=== PATIENT | female | born 1995 | race Caucasian/White ===

== ENCOUNTER → 2021-11-24 16:34 | Outpatient (BNVA) | payer SELFPAY | PROVIDERS: Visit Provider Emergency Medicine | DX: R39.9 Unspecified symptoms and signs involving the genitourinary system (principal); N39.0 Urinary tract infection, site not specified | CPT/HCPCS: 81000 ==

== ENCOUNTER 2021-12-17 19:09 | Emergency (ER) | payer OTHER, SELFPAY ==
[2021-12-17 19:29] VITALS: BP 196/113; PULSE 100; RESP 18; O2SAT 99
[2021-12-17 19:30] VITALS: BP 196/113; PULSE 95; RESP 21; O2SAT 96; BMI 19.0
[2021-12-17 19:37] VITALS: BP 196/113; PULSE 95; RESP 21; TEMP 36.6; O2SAT 96
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
[2021-12-17 20:47] LABS: Basophils % 0.3 %; Eosinophils # 0.1 10^3/uL (0.0-0.8); Eosinophils % 0.7 %; Hematocrit 40.7 % (37.0-47.0); Hemoglobin 13.8 g/dL (11.5-15.3); Lymphocytes # 2.3 10^3/uL (0.8-4.8); Lymphocytes % 21.1 %; Mean Corpuscular HGB Conc 33.9 g/dL (30.0-36.0); Mean Corpuscular Hemoglobin 30.2 pg (28.0-34.0); Mean Corpuscular Volume 89.1 fl (81-99); Mean Platelet Volume 11.3 fL (7.4-10.4); Monocytes # 0.6 10^3/uL (0.2-0.9); Monocytes % 5.8 %; Neutrophils # 7.64 10^3/uL (1.8-7.7); Neutrophils % 71.4 %; Nucleated Red Blood Cells % 0 %; Platelet Count 269 10^3/cmm (130-400); Red Blood Count 4.57 10^6/uL (4.1-5.3); Red Cell Distribution Width 12.3 % (12.1-15.1); White Blood Count 10.7 10^3/uL (4.0-10.0)
[2021-12-17 21:27] VITALS: RESP 17; O2SAT 98
[2021-12-17] MEDS: morphine 4 mg/mL SDV 1 mL IVP (21:27)
[2021-12-17 21:31] VITALS: BP 171/103; PULSE 89; RESP 17; O2SAT 98
[2021-12-17] MEDS: ondansetron 2 mg/ML SDV 2 mL 4 MG IVP (21:41)
[2021-12-17 21:42] LABS: Alanine Aminotransferase 24 U/L (0-33); Albumin Level 4.2 g/dL (3.5-5.2); Alkaline Phosphatase 113 IU/L (35-105); Anion Gap 14.1 (5-19); Aspartate Amino Transferase 29 U/L (0-32); Blood Urea Nitrogen 14 mg/dL (6-20); Calcium 8.7 mg/dL (8.5-10.5); Carbon Dioxide 26 mmol/L (22-29); Chloride 104 mmol/L (98-107); Globulin 3.1 g/dL (1.3-4.6); Glomerular Filtration Rate 102.8 mL/min (90-130); Glucose 100 mg/dL (65-115); Osmolality Calculated 291 mOsm/kg (285-295); Potassium 4.1 mmol/L (3.5-5.1); Sodium 140 mmol/L (136-145); Total Bilirubin 0.5 mg/dL (0.15-1.2); Total Protein 7.3 g/dL (6.6-8.7)
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
[2021-12-17 22:43] VITALS: BP 171/103; PULSE 82; RESP 18; O2SAT 95
[2021-12-17] MEDS: tetanus-dipt-pertussis 0.5 mL SDV IM (23:42)
[2021-12-18] MEDS: neomycin-poly-bacitracin oint 0.9 gm Pkt 1 APPLIC TOPICAL (00:02)
[2021-12-18] MEDS: cephALEXin 500 mg Capsule PO (00:02)
[2021-12-18] MEDS: HYDROcodone-acetaminophen 7.5-325 mg Tablet 1 TAB PO (00:02)
== END 2021-12-18 01:05 | disposition home or self-care (01) ==
PROVIDERS: Emergency Provider Physician Assistant
DX: S81.012A Laceration without foreign body, left knee, initial encounter (principal); S81.011A Laceration without foreign body, right knee, initial encounter; R51.9 Headache, unspecified; M54.2 Cervicalgia; V89.2XXA Person injured in unspecified motor-vehicle accident, traffic, initial encounter; Z23 Encounter for immunization
CPT/HCPCS: 12002; 70450; 70486; 72125; 73130; 73562; 74176; 80053; 84702; 85025; 90471; 90715; 96374; 96375; 99284; J2270; J2405